=== PATIENT | male | born 1990 | race Hispanic/Latino ===

== ENCOUNTER 2022-12-01 16:01 | Inpatient (IN) | payer OTHER, SELFPAY ==
--- OUTSIDE RECORDS SUMMARY | 2022-12-01 16:05 | XMS REPORT | Continuity of Care Document ---
:1990 Author Organization [facility] t Address [address] [place] [address] [address] [place] [address] Care Team Providers Name Role Phone Pcp, Patient Does Not Have A Primary Care Physician [id number] JACQUIE ENGEL Attending Clinician Unavailable Jacquie Engel MD Attending Clinician Doctor Unassigned, [place] Attending Clinician Unavailable Abel Retana DO Attending Clinician Linwood Lopez MD Attending Clinician Linwood Lopez MD Admitting Clinician Payers Payer Name Policy Type Policy Number Effective Date Expiration Date S [facility] [id number] 2020 00:00:00 Problems Condition Condition Condition Status Onset Resolution Last Treating Co mments Source Name Details Category Date Date Treatment Clinician Date Acute Acute Disease Active Univers appendicit appendicit 4-25 it y of is is 00:00: [place] [address] Medical Mobile Obesity Obesity Disease Active Univers (BMI (BMI 4-25 ity of 30-39.9) 30-39.9) 00:00: [place] [address] Medical Branch Acute Acute Disease Active Univers colitis colitis 4-25 ity of 00:00: [place] [address] Medical Mobile Allergies, Adverse Reactions, Alerts Allergy Allergy Status Severity Reaction(s) Onset Inactive Treating Comm ents Source Name Type Date Date Clinician NO KNOWN Drug Active Univers ALLERGIE Class ity of S [facility] Social History Social Habit Start Date Stop Date Quantity Comments Source History of Smokes tobacco University of tobacco use daily [facility] Exposure to 2022-04-10 2022-04-20 Not sure [facility] SARS-CoV-2 00:00:00 02:31:00 [facility] (event) Mobile Sex Assigned At [birth year] Universit y of 00:00:00 00:00:00 [facility] Smoking Status Start Date Stop Date Source Smokes tobacco daily 2020-10-17 00:00:00 [facility] ity of [facility] Medications Ordered Filled Start Stop Current Ordering Indication Dosage Frequency Signature Comments Components Source Medication Medication Date Date Medication? Clinician (SIG) Name Name amoxicillin 2021-06 500mg 500 mg, U nivers (TRIMOX) 0-27 04-20 Oral, ity of capsule 500 08:00: 08:18 [place]CE[place] 1 [place] 00 :00 dose, On Medical [facility] Branch 04/20/22 at 0300, NORMA
Re ason for Anti-Infec tive: Documented Infection< br>Documen lucille Infection Site: HEENT
D uration of Therapy: 10 days HYDROcodone 2021-06 No 1{tbl} 1 tablet, Univers -acetaminop 0-27 04-20 Oral, ity of hen (NORCO 08:00: 08:17 ONCE, 1 [place] as 5) 5-325 mg 00 :00 dose, On [facility] judah tablet [facility] Branch tablet 04/20/22 at 0300, NORMA amoxicillin 2021-06 Yes [id number] 500mg Take 1 Univers 500 mg 0-27 capsule by ity of capsule 00:00: mouth in [place] 00 the Medical morning Branch and 1 capsule at noon and 1 capsule in the evening. naproxen 2021-06 No [id number] 500mg Take 1 U nivers 500 mg 0-27 - tablet by ity of tablet 00:00: 05:59 mouth in [place] 00 :00 the Medical morning Branch and 1 tablet in the evening. Take with meals. Do all this for 10 days. HYDROcodone 2021-06- No [id number] 1{tbl} Take 1 U nivers -acetaminop 0-27 11-04 tablet by it y of hen (NORCO) 00:00: 04:59 [place] 7.5-325 mg 00 :00 every 8 Medica l per tablet (eight) Branch hours as needed for Pain for up to 7 days. Indication s: acute pain piperacilli 2021-0 Yes 3.375g 3.375 g, Univers n-tazobacta 4-25 IV ity of m (ZOSYN) 12:15: [place] 3.375 g in 00 Q6H ABX, Medic al NaCl 0.9% First dose Bran ch (NS) 100 mL on Sun MINI-BAG 10/17/20 at 0715, Until Discontinu ed, 100 mL
R juan manuel for Anti-Infec tive: Documented Infection< br>Documen lucille Infection Site: Abdominal< br>Duratio n of Therapy: 7 days piperacilli 2020-0 Yes 3.375g 3.375 g, Univers n-tazobacta 4-25 IV ity of m (ZOSYN) 12:15: [place] 3.375 g in 00 Q6H ABX, Medic al NaCl 0.9% First dose Bran ch (NS) 100 mL on Sun MINI-BAG 10/17/20 at 0715, Until Discontinu ed, 100 mL
R juan manuel for Anti-Infec tive: Documented Infection< br>Documen lucille Infection Site: Abdominal< br>Duratio n of Therapy: 7 days acetaminoph 2020-0 Yes 650mg 650 mg, Un moni en 4-25 Oral, ity of (TYLENOL) 07:51: Q6HPRN, [place] tablet 650 22 Starting Medic al mg Sun Branch 10/17/20 at 0251, Until Discontinu ed, Routine, Pain (scale 1-3), Temp > 38.5 C acetaminoph 2021-0 Yes 650mg 650 mg, Un moni en 4-25 Oral, ity of (TYLENOL) 07:51: Q6HPRN, [place] tablet 650 22 Starting Medic al mg Sun Branch 10/17/20 at 0251, Until Discontinu ed, Routine, Pain (scale 1-3), Temp > 38.5 C piperacilli 2021-0 2021- No 3.375g 3.375 g, Univers n-tazobacta 10-17- IV ity of m (ZOSYN) 07:00: 06:45 [place], [place] 3.375 g in 00 :00 ONCE, 1 Medica l NaCl 0.9% dose, [place] Branc h (NS) 100 mL 10/17/20 at MINI-BAG 0200, 100 mL
Reas on for Anti-Infec tive: Empiric Therapy for Suspected Infection< br>Empiric Therapy Site: Abdominal< br>Duratio n of therapy: 72 hours piperacilli 0 2020- No 3.375g 3.375 g, Univers n-tazobacta 10-17- IV ity of m (ZOSYN) 07:00: 06:45 [place], [place] 3.375 g in 00 :00 ONCE, 1 Medica l NaCl 0.9% dose, [place] Branc h (NS) 100 mL 10/17/20 at MINI-BAG 0200, 100 mL
Reas on for Anti-Infec tive: Empiric Therapy for Suspected Infection< br>Empiric Therapy Site: Abdominal< br>Duratio n of therapy: 72 hours NaCl 0.9% 2020-0 Yes 1000mL at 125 Univ ers (NS) IV 4-25 mL/hr, IV ity of infusion 06:15: [place]fusion, [place] 1,000 mL 00 CONTINUOUS Medic al , Starting Branch [place] 10/17/20 at 0115, Until Discontinu ed, Routine NaCl 0.9% 2020-0 Yes 1000mL at 125 Univ ers (NS) IV 4-25 mL/hr, IV ity of infusion 06:15: Infusion, [place] 1,000 mL 00 CONTINUOUS Medic al , Starting Branch [place] 10/17/20 at 0115, Until Discontinu ed, Routine ondansetron 2020-0 Yes 4mg 4 mg, Slow Univers (ZOFRAN 4-25 IV Push, ity of (PF)) 06:06: Q6HPRN, [place] injection 4 54 Starting Medi judah mg [facility] 10/17/20 at 0106, Until Discontinu ed, Routine, Nausea and Vomiting (N/V) ondansetron 2020-0 Yes 4mg 4 mg, Slow Univers (ZOFRAN 4-25 IV Push, ity of (PF)) 06:06: Q6HPRN, [place] injection 4 54 Starting Medi judah mg [facility] 10/17/20 at 0106, Until Discontinu ed, Routine, Nausea and Vomiting (N/V) morpHINE No 4mg 4 mg, Slow Un moni injection 4 10-17 IV Push, ity of mg 06:06: 06:05 Q4HPRN, [place] 50 :50 Starting [facility] 10/17/20 at 0106, Until 10/18/20 at 0105, Routine, Pain (scale 7-10) morpHINE No 4mg 4 mg, Slow Un moni injection 4 10-17 IV Push, ity of mg 06:06: 06:05 Q4RN, [place] 50 :50 Starting [facility] 10/17/20 at 0106, Until 10/18/20 at 0105, Routine, Pain (scale 7-10) iohexol 2020- No [id number] 120mL 120 mL, Univers (OMNIPAQUE 4-25 04-25 Intravenou it y of 350 04:00: 03:44 s, ONCE, 1 [place] BULK-100 00 :00 dose, Sat Medica l mL) 10/16/20 at Branch injection 2300, 120 mL Routine iohexol 2020- No [id number] 120mL 120 mL, Univers (OMNIPAQUE 4-25 04-25 Intravenou it y of 350 04:00: 03:44 s, ONCE, 1 [place] BULK-100 00 :00 dose, Sat Medica l mL) 10/16/20 at Branch injection 2300, 120 mL Routine No known No No known Unive rs medications 10-17 medication it y of 03:16: s [place] 12 [facility] NaCl 0.9% 2020- No 500mL at 999 Univ ers (NS) bolus 10-17 04-25 mL/hr, 500 it y of infusion 03:00: 04:39 mL, IV [place] 500 mL 00 :00 Infusion, Medical ONCE, 1 Branch dose, 10/16/20 at 2200, STAT NaCl 0.9% 2020- No 500mL at 999 Univ ers (NS) bolus 10-17-25 mL/hr, 500 it y of infusion 03:00: 04:39 mL, IV [place] 500 mL 00 :00 Infusion, Medical ONCE, 1 Branch dose, 10/16/20 at 2200, STAT ciprofloxac 2020- No [id number] 500mg Take 1 Univers in HCl 500 10-17-03 tablet by ity of mg tablet 00:00: 04:59 mouth [place] 00 :00 every 12 Medical (twelve) Branch hours for 7 days. metroNIDAZO 2020- No [id number] 500mg Take 2 Univers LE 250 mg 10-17-03 tablets by ity of tablet 00:00: 04:59 mouth [place] 00 :00 every 8 Medical (eight) Branch hours for 7 days. No known No Univers medications [facility] No known No Univers medications [facility] Vital Signs Vital Name Observation Time Observation Value Comments Source Systolic blood 2022-04-20 07:33:00 160 mm[facility]Hg[facility] [place] [facility] Diastolic blood 2022-04-20 07:33:00 116 mm[facility]Hg] [facility] [place] [facility] rate 2022-04-20 07:33:00 67 /min [facility] Body temperature 2022-04-20 07:33:00 36.94 Amelia [facility] Respiratory rate 2022-04-20 07:33:00 16 /min [facility] Body height 2022-04-20 07:33:00 172.7 cm [facility] Body weight 2022-04-20 07:33:00 96.616 kg [facility] BMI 2022-04-20 07:33:00 32.39 kg/m2 [facility] Oxygen saturation in 2022-04-20 07:33:00 96 /min [facility] Arterial blood by [facility] Pulse oximetry Branch Heart rate 2020-10-17 17:00:00 96 /min [facility] Respiratory rate 2020-10-17 17:00:00 20 /min [facility] Oxygen saturation in 2020-10-17 17:00:00 96 /min [facility] Arterial blood by [facility] Pulse oximetry Branch Systolic blood 2020-10-17 16:17:00 138 mm[Hg] Everardo sity of pressure [facility] Diastolic blood 2020-10-17 16:17:00 81 mm[Hg] Unive rsity of pressure [facility] Heart rate 2020-10-17 16:17:00 89 /min [facility] Body temperature 2020-10-17 16:17:00 37.39 Amelia [facility] [place] [facility] Respiratory rate 2020-10-17 16:17:00 19 /min [facility] Oxygen saturation in 2020-10-17 16:17:00 98 /min [facility] Arterial blood by [facility] Pulse oximetry Branch Body height 2020-10-17 08:00:00 172.7 cm [facility] Body weight 2020-10-17 08:00:00 97.977 kg [facility] BMI 2020-10-17 08:00:00 32.84 kg/m2 [facility] Procedures Procedure Date / Time Performing Clinician Source Performed NOTICE OF PRIVACY 2022-04-20 07:28:29 Doctor Unassigned, No [facility]ACTICES Name [facility] CONSENT/REFUSAL FOR 2022-04-20 07:28:06 [facility] AUTHORIZATION FOR 2020-11-01 05:01:00 Doctor Unassigned, No [facility] RELEASE OF PHI Name Medical Branch PHOSPHORUS 2020-10-17 08:37:00 Linwood Lopez [facility] MAGNESIUM 2020-10-17 08:37:00 Jessica [facility] COMP. METABOLIC PANEL 2020-10-17 08:37:00 Linwood Lopez [facility] ([id number]) [facility] CBC WITH DIFF 2020-10-17 08:37:00 Jessica [facility] PROTHROMBIN TIME / INR 2020-10-17 08:37:00 [facility] ACT[facility] 2020-10-17 08:37:00 Linwood Lopez [facility] THRMPLAS CHANDA Medical Branch COVID-19 (ID NOW RAPID 2020-10-17 05:03:00 Abel Retana [facility] TESTING) Medical Branch URINALYSIS 2020-10-17 04:40:00 Abel Retana [place] [facility] [place] [facility] CT ABDOMEN PELVIS W 2020-10-17 03:48:23 Abel Retana ty of [place] CONTRAST Medical Branch LIPASE 2020-10-17 03:04:00 Abel Retana [facility] COMP. METABOLIC PANEL 2020-10-17 03:04:00 Abel Retana [facility] ([id number]) Medical Branch CBC WITH DIFF 2020-10-17 03:04:00 Singer Abel [facility] NOTICE OF PRIVACY 2020-10-17 02:37:51 Doctor Axel, No [facility] Name Medical Branch Encounters Start End Encounter Admission Attending Care Care Encounter Source Date/Time Date/Time Type Type Clinicians Facility Department ID 2022-04-20 2022-04-20 Emergency X [facility] ERT [id number] Univers 02:38:00 03:25:00 JACQUIE thrasher [facility] 2022-04-20 2022-04-20 Emergency [facility] [id number] Univers 02:38:00 03:25:00 Jacquie RIVAS [id number] i ty [facility] [id number] [place] [facility] [id number] [facility] 084 Branch 2022-04-20 2022-04-20 Orders Doctor ALFARO [id number] Univers 00:00:00 00:00:00 Only UnassignedJACKSON [id number] ity of [place] [facility] [id number] [place] [id number] [facility] 009 Branch 2020-11-01 2020-11-01 Orders Doctor DOMINIC [id number] Univers 00:00:00 00:00:00 Only UnassignedJACKSON [id number] ity of [place] [facility] [id number] [place] as [id number] [facility] 009 Branch 2020-10-16 2020-10-17 Emergency Abel Retana [facility] [id number] Univers 21:40:00 12:16:00 [id number] [id number] [id number] [facility] 080 Branch 2020-10-16 2020-10-16 Emergency X [facility] ERT [id number] Univers 21:40:00 21:40:00 ity of [facility] Results Test Test Test Results Result Source Description Time Comments Comments CT ABDOMEN submucosal Universi ty of PELVIS W 25 edematous cecal wall [place] Medical CONTRAST 14:21:39 thickening with Branch pericecal andperiappendiceal mesenteric stranding. In the absence of appendicealdilation, the findings is suggestive of colitis, however early appendicitisis not excluded. Distant urinary bladder. Subcentimeter segment 4 hepatic hypodensity suggestive of a benign lesionincluding simple cyst, ?biliary hamartoma or hemangioma. Preliminary Report Dictated by Resident: Nisha Quinonez I, Behzad Barry MD., have reviewed this study and agree with theabove report.EXAM: CT ABDOMEN AND PELVIS WITH CONTRAST HISTORY: 30-year-old male with abdominal pain and fever for 3 days. COMPARISON: None. DOSE: 374 mGy cm total exam DLP TECHNIQUE AND FINDINGS: Contiguous axial imaging from the level of the lungbases through the pubic symphysis was performed after the administration of100 cc of intravenous nonionic iodinated Omnipaque 350 contrast. Abdomenwas scanned in venous phase. Corresponding coronal and sagittal MPRreconstructions were obtained. ?Auto mA and/or iterative reconstructionwere used to reduce radiation dose. FINDINGS: LOWER THORAX: The lungs bases are clear. No pleural or pericardialeffusions are visualized. LIVER: Normal contour. A segment 4B hypodensity measures 8 mm. The portalveins are patent. GALLBLADDER AND BILIARY TREE: The gallbladder is decompressed. There is nointra or extrahepatic biliary ductal dilation. SPLEEN: No splenomegaly. PANCREAS: No pancreatic ductal dilation. ADRENAL GLANDS: No adrenal nodules. KIDNEYS: The kidneys enhance normally. No nephrolithiasis orhydronephrosis. PERITONEUM AND RETROPERITONEUM: No free air or free fluid. LYMPH NODES: Lymph nodes in the retroperitoneal, mesenteric, and iliacareas are not enlarged by CT size criteria. GI TRACT: The appendix is well-visualized from its attachment to theblind-ending tip and measures up to 7 mm in diameter (2:104, 4:53). Thereis submucosal cecal edema and mild right lower quadrant pericolonic andperiappendiceal inflammatory stranding. PELVIS/BLADDER: The urinary bladder is distended. VESSELS: Unremarkable. BONES AND SOFT TISSUES: No suspicious lytic or sclerotic bony lesions. [facility], Radiant Results Inft User - 10/17/2020 9:22 AM CDTEXAM: CT ABDOMEN AND PELVIS WITH CONTRASTHISTORY: 30-year-old male with abdominal pain and fever for 3 days.COMPARISON: None.DOSE: 374 mGy cm total exam DLPTECHNIQUE AND FINDINGS: Contiguous axial imaging from the level of the lungbases through the pubic symphysis was performed after the administration of100 cc of intravenous nonionic iodinated Omnipaque 350 contrast. Abdomenwas scanned in venous phase. Corresponding coronal and sagittal MPRreconstructions were obtained. Auto mA and/or iterative reconstructionwere used to reduce radiation dose.FINDINGS:LOWER THORAX: The lungs bases are clear. No pleural or pericardialeffusions are visualized. LIVER: Normal contour. A segment 4B hypodensity measures 8 mm. The portalveins are patent.GALLBLADDER AND BILIARY TREE: The gallbladder is decompressed. There is nointra or extrahepatic biliary ductal dilation.SPLEEN: No splenomegaly.PANCREAS: No pancreatic ductal dilation.ADRENAL GLANDS: No adrenal nodules.KIDNEYS: The kidneys enhance normally. No nephrolithiasis orhydronephrosis.PERITON EUM AND RETROPERITONEUM: No free air or free fluid.LYMPH NODES: Lymph nodes in the retroperitoneal, mesenteric, and iliacareas are not enlarged by CT size criteria. GI TRACT: The appendix is well-visualized from its attachment to theblind-ending tip and measures up to 7 mm in diameter (2:104, 4:53). Thereis submucosal cecal edema and mild right lower quadrant pericolonic andperiappendiceal inflammatory stranding.PELVIS/BLADDER : The urinary bladder is distended.VESSELS: Unremarkable.BONES AND SOFT TISSUES: No suspicious lytic or sclerotic bony lesions.IMPRESSIONMild submucosal edematous cecal wall thickening with pericecal andperiappendiceal mesenteric stranding. In the absence of appendicealdilation, the findings is suggestive of colitis, however early appendicitisis not excluded. Distant urinary bladder.Subcentimeter segment 4 hepatic hypodensity suggestive of a benign lesionincluding simple cyst, biliary hamartoma or hemangioma.Preliminary Report Dictated by Resident: Behzad Ferrell MD., have reviewed this study and agree with theabove report. CT ABDOMEN 2020-09- Mild submucosal Universi ty of PELVIS W 25 edematous cecal wall [place] CONTR[place] 14:21:39 thickening with Branch pericecal andperiappendiceal mesenteric stranding. In the absence of appendicealdilation, the findings is suggestive of colitis, however early appendicitisis not excluded. Distant urinary bladder. Subcentimeter segment 4 hepatic hypodensity suggestive of a benign lesionincluding simple cyst, ?biliary hamartoma or hemangioma. Preliminary Report Dictated by Resident: Behzad Lewis ?MD Анна., have reviewed this study and agree with theabove report.EXAM: CT ABDOMEN AND PELVIS WITH CONTRAST HISTORY: 30-year-old male with abdominal pain and fever for 3 days. COMPARISON: None. DOSE: 374 mGy cm total exam DLP TECHNIQUE AND FINDINGS: Contiguous axial imaging from the level of the lungbases through the pubic symphysis was performed after the administration of100 cc of intravenous nonionic iodinated Omnipaque 350 contrast. Abdomenwas scanned in venous phase. Corresponding coronal and sagittal MPRreconstructions were obtained. ?Auto mA and/or iterative reconstructionwere used to reduce radiation dose. FINDINGS: LOWER THORAX: The lungs bases are clear. No pleural or pericardialeffusions are visualized. LIVER: Normal contour. A segment 4B hypodensity measures 8 mm. The portalveins are patent. GALLBLADDER AND BILIARY TREE: The gallbladder is decompressed. There is nointra or extrahepatic biliary ductal dilation. SPLEEN: No splenomegaly. PANCREAS: No pancreatic ductal dilation. ADRENAL GLANDS: No adrenal nodules. KIDNEYS: The kidneys enhance normally. No nephrolithiasis orhydronephrosis. PERITONEUM AND RETROPERITONEUM: No free air or free fluid. LYMPH NODES: Lymph nodes in the retroperitoneal, mesenteric, and iliacareas are not enlarged by CT size criteria. GI TRACT: The appendix is well-visualized from its attachment to theblind-ending tip and measures up to 7 mm in diameter (2:104, 4:53). Thereis submucosal cecal edema and mild right lower quadrant pericolonic andperiappendiceal inflammatory stranding. PELVIS/BLADDER: The urinary bladder is distended. VESSELS: Unremarkable. BONES AND SOFT TISSUES: No suspicious lytic or sclerotic bony lesions. [facility], Radiant Results Inft User - 10/17/2020 9:22 AM CDTEXAM: CT ABDOMEN AND PELVIS WITH CONTRASTHISTORY: 30-year-old male with abdominal pain and fever for 3 days.COMPARISON: None.DOSE: 374 mGy cm total exam DLPTECHNIQUE AND FINDINGS: Contiguous axial imaging from the level of the lungbases through the pubic symphysis was performed after the administration of100 cc of intravenous nonionic iodinated Omnipaque 350 contrast. Abdomenwas scanned in venous phase. Corresponding coronal and sagittal MPRreconstructions were obtained. Auto mA and/or iterative reconstructionwere used to reduce radiation dose.FINDINGS:LOWER THORAX: The lungs bases are clear. No pleural or pericardialeffusions are visualized. LIVER: Normal contour. A segment 4B hypodensity measures 8 mm. The portalveins are patent.GALLBLADDER AND BILIARY TREE: The gallbladder is decompressed. There is nointra or extrahepatic biliary ductal dilation.SPLEEN: No splenomegaly.PANCREAS: No pancreatic ductal dilation.ADRENAL GLANDS: No adrenal nodules.KIDNEYS: The kidneys enhance normally. No nephrolithiasis orhydronephrosis.PERITON EUM AND RETROPERITONEUM: No free air or free fluid.LYMPH NODES: Lymph nodes in the retroperitoneal, mesenteric, and iliacareas are not enlarged by CT size criteria. GI TRACT: The appendix is well-visualized from its attachment to theblind-ending tip and measures up to 7 mm in diameter (2:104, 4:53). Thereis submucosal cecal edema and mild right lower quadrant pericolonic andperiappendiceal inflammatory stranding.PELVIS/BLADDER : The urinary bladder is distended.VESSELS: Unremarkable.BONES AND SOFT TISSUES: No suspicious lytic or sclerotic bony lesions.IMPRESSIONMild submucosal edematous cecal wall thickening with pericecal andperiappendiceal mesenteric stranding. In the absence of appendicealdilation, the findings is suggestive of colitis, however early appendicitisis not excluded. Distant urinary bladder.Subcentimeter segment 4 hepatic hypodensity suggestive of a benign lesionincluding simple cyst, biliary hamartoma or hemangioma.Preliminary Report Dictated by Resident: Nisha Muñiz, Behzad Jj MD., have reviewed this study and agree with theabove report. MAGNESIUM 2020-10-17 11:10:45 Test Item Value Reference Range Interpretation Comme nts MAGNESIUM (test code = 1191959165) 1.6 mg/dL 1.7-2.4 L Lab Interpretation (test code = 27845-2) [facility] 11:10:45 Test Item Value Reference Range Interpretation Comments MAGNESIUM (test code = 3606886221) 1.6 mg/dL 1.7-2.4 L Lab Interpretation (test code = Abnormal 65657-6) [facility] (42642)2020-10-17 11:10:25 Test Item Value Reference Range Interpretation Comments NA (test code = 139 mmol/L 135-145 [id number]) K (test code = 3.7 mmol/L 3.5-5.0 8262367790) CL (test code = 103 mmol/L 98-108 1571834509) CO2 TOTAL (test code = 26 mmol/L 23-31 6569449096) AGAP (test code = 2-16 0517685733) BUN (test code = 11 mg/dL 7-23 8285840883) GLUCOSE (test code = 97 mg/dL 70-110 7010998586) CREATININE (test code = 0.87 mg/dL 0.60-1.25 0414362340) TOTAL BILI (test code = 1.4 mg/dL 0.1-1.1 H 6322116359) CALCIUM (test code = 9.5 mg/dL 8.6-10.6 3248441759) T PROTEIN (test code = 7.0 g/dL 6.3-8.2 7667264620) ALBUMIN (test code = 4.3 g/dL 3.5-5.0 1042210730) ALK PHOS (test code = 68 U/L 34-122 1483536494) ALTv (test code = 41 U/L 5-50 1742-6) AST(SGOT) (test code = 30 U/L 1340 6025127244) eGFR (test code = mL/min/1.73m2 7169739091) RYLEY (test code = RYLEY) Association of Glomerular Filtration Rate (GFR) and Staging of Kidney Disease* + --+ --+ ------+| GFR (mL/min/1.73 m2) ?| With Kidney Damage ?| ?Without Kidney Damage+ --------+ --------+ +| ?>90 ?| ?Stage one ?| ? Normal ?+ ---+ ---+ -------+| ?60-89 ?| ?Stage two ?| ? Decreased GFR ? + --+ --+ ------+| ?30-59 ?| ?Stage three ?| ? Stage three ? + --+ --+ ------+| ?15-29 ?| ?Stage four ? | ? Stage four ?+ ---+ ---+ -------+| ?<15 (or dialysis) ? ?| ?Stage five ? | ? Stage five ?+ ---+ ---+ -------+ *Each stage assumes the associated GFR level has been in effect for at least three months. ?Stages 1 to 5, with or without kidney disease, indicate chronic kidney disease. Notes: Determination of stages one and two (with eGFR >59mL/min/1.73 m2) requires estimation of kidney damage for at least three months as defined by structural or functional abnormalities of the kidney, manifested by either:Pathological abnormalities or Markers of kidney damage (including abnormalities in the composition of the blood or urine or abnormalities in imaging tests). Lab Interpretation Abnormal (test code = 87761-6) [facility]10:25 Test Item Value Reference Range Interpretation Comments PHOSPHORUS (test code = 7833017332) 4.8 mg/dL 2.5-5.0 Lab Interpretation (test code = Normal 69157-9) [facility] ([id number])2020-10-17 11:10:25 Test Item Value Reference Range Interpretation Comments NA (test code = 139 mmol/L 135-145 5613254735) K (test code = 3.7 mmol/L 3.5-5.0 4111379767) CL (test code = 103 mmol/L 98-108 6951769027) CO2 TOTAL (test code = 26 mmol/L 23-31 1468951978) AGAP (test code = 2-16 3341040053) BUN (test code = 11 mg/dL 7-23 0354995824) GLUCOSE (test code = 97 mg/dL 70-110 0386101980) CREATININE (test code = 0.87 mg/dL 0.60-1.25 6335030457) TOTAL BILI (test code = 1.4 mg/dL 0.1-1.1 H 9713498879) CALCIUM (test code = 9.5 mg/dL 8.6-10.6 9266324123) T PROTEIN (test code = 7.0 g/dL 6.3-8.2 9773439467) ALBUMIN (test code = 4.3 g/dL 3.5-5.0 6019281686) ALK PHOS (test code = 68 U/L 34-122 9860106498) ALTv (test code = 41 U/L 5-50 2-6) AST(SGOT) (test code = 30 U/L 13-40 8854516895) eGFR (test code = mL/min/1.73m2 6312268702) RYLEY (test code = RYLEY) Association of Glomerular Filtration Rate (GFR) and Staging of Kidney Disease* + --+ --+ ------+| GFR (mL/min/1.73 m2) ?| With Kidney Damage ?| ?Without Kidney Damage+ --------+ --------+ +| ?>90 ?| ?Stage one ?| ? Normal ?+ ---+ ---+ -------+| ?60-89 ?| ?Stage two ?| ? Decreased GFR ? + --+ --+ ------+| ?30-59 ?| ?Stage three ?| ? Stage three ? + --+ --+ ------+| ?15-29 ?| ?Stage four ? | ? Stage four ?+ ---+ ---+ -------+| ?<15 (or dialysis) ? ?| ?Stage five ? | ? Stage five ?+ ---+ ---+ -------+ *Each stage assumes the associated GFR level has been in effect for at least three months. ?Stages 1 to 5, with or without kidney disease, indicate chronic kidney disease. Notes: Determination of stages one and two (with eGFR >59mL/min/1.73 m2) requires estimation of kidney damage for at least three months as defined by structural or functional abnormalities of the kidney, manifested by either:Pathological abnormalities or Markers of kidney damage (including abnormalities in the composition of the blood or urine or abnormalities in imaging tests). Lab Interpretation Abnormal (test code = 49744-2) [facility]10:25 Test Item Value Reference Range Interpretation Comments PHOSPHORUS (test code = 7410703228) 4.8 mg/dL 2.5-5.0 Lab Interpretation (test code = Normal 22485-0) [facility] [id number] 10:44:07 Test Item Value Reference Range Interpretation Comments APTT Patient (test See_Comment [Automat ed code = 3173-2) message] The system which generated this result transmitted reference range : 23 - 38 Seconds . The reference range was not used to interpr et this result as normal/abnormal . RYLEY (test code = RYLEY) The [facility] patient population mean normal value for aPTT is 30 seconds. Lab Interpretation Normal (test code = 19542-1) [facility] [id number] 10:44:07 Test Item Value Reference Range Interpretation Comments APTT Patient (test See_Comment [Automat ed code = 3173-2) message] The system which generated this result transmitted reference range : 23 - 38 Seconds . The reference range was not used to interpr et this result as normal/abnormal . RYLEY (test code = RYLEY) The [facility] patient population mean normal value for aPTT is 30 seconds. Lab Interpretation Normal (test code = 28829-0) [facility] / [id number] 10:42:04 Test Item Value Reference Range Interpretation Comments PROTIME PATIENT (test See_Comment [Auto mated message] code = 5964-2) The system wh ich generated this result transmitted ref erence range: 12.0 - 1 4.7 Seconds. The re ference range was not u sed to interpret this result as normal/abnor mal. INR (test code = 6301-6) Nor mal INR <1.1; Warfarin Therap eutic range 2.0 to 3. 0 or 2.5 to 3.5, dep ending upon the indica tions. Lab Interpretation (test Normal code = 12760-1) [facility] / [id number] 10:42:04 Test Item Value Reference Range Interpretation Comments PROTIME PATIENT (test See_Comment [Auto mated message] code = 5964-2) The system wh ich generated this result transmitted ref erence range: 12.0 - 1 4.7 Seconds. The re ference range was not u sed to interpret this result as normal/abnor mal. INR (test code = 6301-6) Nor mal INR <1.1; Warfarin Therap eutic range 2.0 to 3. 0 or 2.5 to 3.5, dep ending upon the indica tions. Lab Interpretation (test Normal code = 05690-7) [facility] WITH [id number] 10:25:24 Test Item Value Reference Range Interpretation Comments WBC (test code = See_Comment H [Automated 6690-2) message] The sy stem which generated this result transmitted reference range : 4.20 - 10.70 10*3/?L. The reference range was not used to interpret this result as normal/abnormal . RBC (test code = See_Comment [Automated 239-8) message] The sy stem which generated this result transmitted reference range : 4.26 - 5.52 10*6/?L. The reference range was not used to interpret this result as normal/abnormal . HGB (test code = 14.6 g/dL 12.2-16.4 718-7) HCT (test code = 43.6 % 38.4-49.3 4544-3) MCV (test code = 89.5 fL 81.7-95.6 787-2) MCH (test code = 30.0 pg 26.1-32.7 785-6) MCHC (test code = 33.5 g/dL 31.2-35.0 786-4) RDW-SD (test code = 40.0 fL 38.5-51.6 06706-8) RDW-CV (test code = 12.2 % 12.1-15.4 788-0) PLT (test code = See_Comment [Automated 777-3) message] The sy stem which generated this result transmitted reference range : 150 - 328 10*3/ ?L. The reference r sandoval was not used to interpret this result as normal/abnormal . MPV (test code = 10.0 fL 9.8-13.0 88645-0) NRBC/100 WBC (test See_Comment [Automat ed code = 9072401301) message] The system which generated this result transmitted reference range : 0.0 - 10.0 /100 WBCs. The refer ence range was not u sed to interpret th is result as normal/abnormal . NRBC x10^3 (test code <0.01 See_Comment [Auto mated = 3182971787) message] The s ystem which generated this result transmitted reference range : 10*3/?L. The reference range was not used to interpret this result as normal/abnormal . GRAN MAT (NEUT) % 76.1 % (test code = 770-8) IMM GRAN % (test code 0.60 % = 8397522684) LYMPH % (test code = 13.9 % 736-9) MONO % (test code = 6.5 % 5905-5) EOS % (test code = 2.3 % 713-8) BASO % (test code = 0.6 % 706-2) GRAN MAT x10^3(ANC) 8.26 10*3/uL 1.99-6.95 H (test code = 6345964377) IMM GRAN x10^3 (test 0.06 10*3/uL 0.00-0.06 code = 5834471387) LYMPH x10^3 (test code 1.50 10*3/uL 1.09-3.23 = 731-0) MONO x10^3 (test code 0.70 10*3/uL 0.36-1.02 = 742-7) EOS x10^3 (test code = 0.25 10*3/uL 0.06-0.53 711-2) BASO x10^3 (test code 0.06 10*3/uL 0.01-0.09 = 704-7) Lab Interpretation Abnormal (test code = 61764-0) [facility] WITH [id number] 10:25:24 Test Item Value Reference Range Interpretation Comments WBC (test code = See_Comment H [Automated 6690-2) message] The sy stem which generated this result transmitted reference range : 4.20 - 10.70 10*3/?L. The reference range was not used to interpret this result as normal/abnormal . RBC (test code = See_Comment [Automated 789-8) message] The sy stem which generated this result transmitted reference range : 4.26 - 5.52 10*6/?L. The reference range was not used to interpret this result as normal/abnormal . HGB (test code = 14.6 g/dL 12.2-16.4 718-7) HCT (test code = 43.6 % 38.4-49.3 4544-3) MCV (test code = 89.5 fL 81.7-95.6 787-2) MCH (test code = 30.0 pg 26.1-32.7 785-6) MCHC (test code = 33.5 g/dL 31.2-35.0 786-4) RDW-SD (test code = 40.0 fL 38.5-51.6 29679-3) RDW-CV (test code = 12.2 % 12.1-15.4 788-0) PLT (test code = See_Comment [Automated 777-3) message] The sy stem which generated this result transmitted reference range : 150 - 328 10*3/ ?L. The reference r sandoval was not used to interpret this result as normal/abnormal . MPV (test code = 10.0 fL 9.8-13.0 88437-7) NRBC/100 WBC (test See_Comment [Automat ed code = 5693928607) message] The system which generated this result transmitted reference range : 0.0 - 10.0 /100 WBCs. The refer ence range was not u sed to interpret th is result as normal/abnormal . NRBC x10^3 (test code <0.01 See_Comment [Auto mated = 3314647090) message] The s ystem which generated this result transmitted reference range : 10*3/?L. The reference range was not used to interpret this result as normal/abnormal . GRAN MAT (NEUT) % 76.1 % (test code = 770-8) IMM GRAN % (test code 0.60 % = 6626441606) LYMPH % (test code = 13.9 % 736-9) MONO % (test code = 6.5 % 5905-5) EOS % (test code = 2.3 % 713-8) BASO % (test code = 0.6 % 706-2) GRAN MAT x10^3(ANC) 8.26 10*3/uL 1.99-6.95 H (test code = 8199181759) IMM GRAN x10^3 (test 0.06 10*3/uL 0.00-0.06 code = 5619582103) LYMPH x10^3 (test code 1.50 10*3/uL 1.09-3.23 = 731-0) MONO x10^3 (test code 0.70 10*3/uL 0.36-1.02 = 742-7) EOS x10^3 (test code = 0.25 10*3/uL 0.06-0.53 711-2) BASO x10^3 (test code 0.06 10*3/uL 0.01-0.09 = 704-7) Lab Interpretation Abnormal (test code = 60539-4) [facility] NOW RAPID TESTING)2020-10-17 07:08:02 Test Item Value Reference Range Interpretation Comments SARS-CoV-2 Rapid ID NOW Not Detected Not Detected (test code = 55230-4) RYLEY (test code = RYLEY) ID NOW COVID-19 Assay is an isothermal nucleic acid amplification test intended for the qualitative detection of nucleic acid from SARS-CoV-2 viral RNA in nasopharyngeal (SLEEVE SETTER SAFETY STITCH) specimens. It is used under Emergency Use Authorization (EUA) by FDA. The limit of detection (LOD) of the assay is 125 Genome Equivalents/mL. A positive result is indicative of the presence of SARS-CoV-2 RNA. ?Clinical correlation with patient history and other diagnostic information is necessary to determine patient infection status. A negative (Not Detected) result does not preclude SARS-CoV-2 infection. In patients with clinical symptoms and other tests that are consistent with SARS-CoV-2 infection, negative results should be treated as presumptive negative and a new specimen should be tested with alternative PCR molecular test. Invalid: Please collect a new specimen for repeat patient testing if clinically indicated. Lab Interpretation Normal (test code = 72567-1) [facility] NOW RAPID TESTING)2020-10-17 07:08:02 Test Item Value Reference Range Interpretation Comments SARS-CoV-2 Rapid ID NOW Not Detected Not Detected (test code = 08761-2) RYLEY (test code = RYLEY) ID NOW COVID-19 Assay is an isothermal nucleic acid amplification test intended for the qualitative detection of nucleic acid from SARS-CoV-2 viral RNA in nasopharyngeal (SLEEVE SETTER SAFETY STITCH) specimens. It is used under Emergency Use Authorization (EUA) by FDA. The limit of detection (LOD) of the assay is 125 Genome Equivalents/mL. A positive result is indicative of the presence of SARS-CoV-2 RNA. ?Clinical correlation with patient history and other diagnostic information is necessary to determine patient infection status. A negative (Not Detected) result does not preclude SARS-CoV-2 infection. In patients with clinical symptoms and other tests that are consistent with SARS-CoV-2 infection, negative results should be treated as presumptive negative and a new specimen should be tested with alternative PCR molecular test. Invalid: Please collect a new specimen for repeat patient testing if clinically indicated. Lab Interpretation Normal (test code = 21401-3) [facility] 05:57:58 Test Item Value Reference Range Interpretation Comments APPEARANCE (test code = Clear Clear 8171240360) COLOR (test code = Straw Yellow A 0715587854) PH (test code = 4.8-8.0 6354385527) SP GRAVITY (test code = 1.003-1.030 0650567369) GLU U QUAL (test code = Normal Normal 6176530966) BLOOD (test code = Negative Negative 9179478636) KETONES (test code = Negative Negative 2790714648) PROTEIN (test code = Negative Negative 2887-8) UROBILIN (test code = Normal Normal 8758987208) BILIRUBIN (test code = Negative Negative 2614436246) NITRITE (test code = Negative Negative 1900889461) LEUK RAYA (test code = Negative Negative 1599777397) RBC/HPF (test code = See_Comment [Autom ated message] 8330786410) The system [email or web address] generated this result transmitted ref erence range: 0 - 3 HP F. The reference range was not used to int erpret this result as normal/abnormal . WBC/HPF (test code = <1 See_Comment [Autom ated message] 2420399745) The system [email or web address] generated this result transmitted ref erence range: 0 - 5 HP F. The reference range was not used to int erpret this result as normal/abnormal . BACTERIA (test code = Few Negative A 8775339142) Lab Interpretation (test Abnormal code = 81493-9) [facility] 05:57:58 Test Item Value Reference Range Interpretation Comments APPEARANCE (test code = Clear Clear 6548021452) COLOR (test code = Straw Yellow A 2890451558) PH (test code = 4.8-8.0 2465730499) SP GRAVITY (test code = 1.003-1.030 2990820222) GLU U QUAL (test code = Normal Normal 4365232696) BLOOD (test code = Negative Negative 6411617472) KETONES (test code = Negative Negative 9258873803) PROTEIN (test code = Negative Negative 2887-8) UROBILIN (test code = Normal Normal 4512818915) BILIRUBIN (test code = Negative Negative 8158939481) NITRITE (test code = Negative Negative 3342527448) LEUK RAYA (test code = Negative Negative 6608549253) RBC/HPF (test code = See_Comment [Autom ated message] 7699861096) The system [email or web address] generated this result transmitted ref erence range: 0 - 3 HP F. The reference range was not used to int erpret this result as normal/abnormal . WBC/HPF (test code = <1 See_Comment [Autom ated message] 8323087386) The system [email or web address] generated this result transmitted ref erence range: 0 - 5 HP F. The reference range was not used to int erpret this result as normal/abnormal . BACTERIA (test code = Few Negative A 2641901321) Lab Interpretation (test Abnormal code = 86645-9) [facility]OLIC PAN[facility] ([id number])2020-10-17 03:30:05 Test Item Value Reference Range Interpretation Comments NA (test code = 138 mmol/L 135-145 5982610948) K (test code = 3.6 mmol/L 3.5-5.0 0017521574) CL (test code = 103 mmol/L 98-108 4806908587) CO2 TOTAL (test code 24 mmol/L 23-31 = 8280572751) AGAP (test code = 2-16 4667112835) BUN (test code = 14 mg/dL 7-23 2829928154) GLUCOSE (test code = 100 mg/dL 70-110 6306900477) CREATININE (test code 0.86 mg/dL 0.60-1.25 = 1425451931) TOTAL BILI (test code 0.7 mg/dL 0.1-1.1 = 8874842247) CALCIUM (test code = 10.0 mg/dL 8.6-10.6 2637588543) T PROTEIN (test code 7.4 g/dL 6.3-8.2 = 0177134438) ALBUMIN (test code = 4.5 g/dL 3.5-5.0 4465217282) ALK PHOS (test code = 86 U/L 34-122 7277114476) ALTv (test code = 44 U/L 5-50 2-6) AST(SGOT) (test code 35 U/L 13-40 = 0707833049) eGFR (test code = mL/min/1.73m2 9225213360) RYLEY (test code = RYLEY) Association of Glomerular Filtration Rate (GFR) and Staging of Kidney Disease* + + +- +| GFR (mL/min/1.73 m2) ?| With Kidney Damage ?| ?Without Kidney Damage+ ------+ ----+ ------+| ?>90 ?| ?Stage one ?| ? Normal ?+ -+ + -+| ?60-89 ?| ?Stage two ?| ? Decreased GFR ? + + +- +| ?30-59 ?| ?Stage three ?| ? Stage three ? + + +- +| ?15-29 ?| ?Stage four ? | ? Stage four ?+ -+ + -+| ?<15 (or dialysis) ? ?| ?Stage five ? | ? Stage five ?+ -+ + -+ *Each stage assumes the associated GFR level has been in effect for at least three months. ?Stages 1 to 5, with or without kidney disease, indicate chronic kidney disease. Notes: Determination of stages one and two (with eGFR >59mL/min/1.73 m2) requires estimation of kidney damage for at least three months as defined by structural or functional abnormalities of the kidney, manifested by either:Pathological abnormalities or Markers of kidney damage (including abnormalities in the composition of the blood or urine or abnormalities in imaging tests). [facility]. METABOLIC PANEL ([id number])2020-10-17 03:30:05 Test Item Value Reference Range Interpretation Comments NA (test code = 138 mmol/L 135-145 1806823144) K (test code = 3.6 mmol/L 3.5-5.0 2131827000) CL (test code = 103 mmol/L 98-108 0463585938) CO2 TOTAL (test code 24 mmol/L 23-31 = 3174300644) AGAP (test code = 2-16 6134116196) BUN (test code = 14 mg/dL 7-23 7400721195) GLUCOSE (test code = 100 mg/dL 70-110 5372121185) CREATININE (test code 0.86 mg/dL 0.60-1.25 = 0765190442) TOTAL BILI (test code 0.7 mg/dL 0.1-1.1 = 4936014430) CALCIUM (test code = 10.0 mg/dL 8.6-10.6 3924427480) T PROTEIN (test code 7.4 g/dL 6.3-8.2 = 2628448898) ALBUMIN (test code = 4.5 g/dL 3.5-5.0 8048449602) ALK PHOS (test code = 86 U/L 34-122 5619342833) ALTv (test code = 44 U/L 5-50 1742-6) AST(SGOT) (test code 35 U/L 13-40 = 9175231159) eGFR (test code = mL/min/1.73m2 4982383649) RYLEY (test code = RYLEY) Association of Glomerular Filtration Rate (GFR) and Staging of Kidney Disease* + + +- +| GFR (mL/min/1.73 m2) ?| With Kidney Damage ?| ?Without Kidney Damage+ ------+ ----+ ------+| ?>90 ?| ?Stage one ?| ? Normal ?+ -+ + -+| ?60-89 ?| ?Stage two ?| ? Decreased GFR ? + + +- +| ?30-59 ?| ?Stage three ?| ? Stage three ? + + +- +| ?15-29 ?| ?Stage four ? | ? Stage four ?+ -+ + -+| ?<15 (or dialysis) ? ?| ?Stage five ? | ? Stage five ?+ -+ + -+ *Each stage assumes the associated GFR level has been in effect for at least three months. ?Stages 1 to 5, with or without kidney disease, indicate chronic kidney disease. Notes: Determination of stages one and two (with eGFR >59mL/min/1.73 m2) requires estimation of kidney damage for at least three months as defined by structural or functional abnormalities of the kidney, manifested by either:Pathological abnormalities or Markers of kidney damage (including abnormalities in the composition of the blood or urine or abnormalities in imaging tests). [facility]29[facility]25 Test Item Value Reference Range Interpretation Comments LIPASE (test code = 8622456841) 54 U/L 0-220 Lab Interpretation (test code = Normal 92292-8) [facility] 03:29:25 Test Item Value Reference Range Interpretation Comments LIPASE (test code = 4935842944) 54 U/L 0-220 Lab Interpretation (test code = Normal 01344-5) [facility] WITH [id number] 03:15:05 Test Item Value Reference Range Interpretation Comments WBC (test code = See_Comment H [Automated 7904-2) message] The system which generated this result transmit lucille reference range : 4.20 - 10.70 10*3/?L. The reference range was not used to interpret this result as normal/abnormal . RBC (test code = See_Comment [Automated 916-8) message] The system which generated this result transmit lucille reference range : 4.26 - 5.52 10*6/?L. The reference range was not used to interpret this result as normal/abnormal . HGB (test code = 14.6 g/dL 12.2-16.4 718-7) HCT (test code = 42.6 % 38.4-49.3 4544-3) MCV (test code = 88.0 fL 81.7-95.6 787-2) MCH (test code = 30.2 pg 26.1-32.7 785-6) MCHC (test code = 34.3 g/dL 31.2-35.0 786-4) RDW-SD (test code = 38.6 fL 38.5-51.6 33165-0) RDW-CV (test code = 12.0 % 12.1-15.4 L 788-0) PLT (test code = See_Comment [Automated 777-3) message] The system which generated this result transmit lucille reference range : 150 - 328 10*3/ ?L. The reference range was not u sed to interpret th is result as normal/abnormal . MPV (test code = 9.3 fL 9.8-13.0 L 61468-2) NRBC/100 WBC (test See_Comment [Automat ed code = 5940736880) message] The system which generated this result transmit lucille reference range : 0.0 - 10.0 /100 WBCs. The reference range was not used to interpret this result as normal/abnormal . NRBC x10^3 (test code <0.01 See_Comment [Auto mated = 5535742908) message] The system which generated this result transmit lucille reference range : 10*3/?L. The reference range was not used to interpret this result as normal/abnormal . GRAN MAT (NEUT) % 87.1 % (test code = 770-8) IMM GRAN % (test code 0.70 % = 0480362653) LYMPH % (test code = 7.3 % 736-9) MONO % (test code = 1.6 % 5905-5) EOS % (test code = 2.6 % 713-8) BASO % (test code = 0.7 % 706-2) GRAN MAT x10^3(ANC) 14.25 10*3/uL 1.99-6.95 H (test code = 5438236847) IMM GRAN x10^3 (test 0.12 10*3/uL 0.00-0.06 H code = 9852979331) LYMPH x10^3 (test code 1.20 10*3/uL 1.09-3.23 = 731-0) MONO x10^3 (test code 0.26 10*3/uL 0.36-1.02 L = 742-7) EOS x10^3 (test code = 0.42 10*3/uL 0.06-0.53 711-2) BASO x10^3 (test code 0.11 10*3/uL 0.01-0.09 H = 704-7) Lab Interpretation Abnormal (test code = 36178-2) [facility] WITH [id number] 03:15:05 Test Item Value Reference Range Interpretation Comments WBC (test code = See_Comment H [Automated 9490-2) message] The system which generated this result transmit lucille reference range : 4.20 - 10.70 10*3/?L. The reference range was not used to interpret this result as normal/abnormal . RBC (test code = See_Comment [Automated 659-8) message] The system which generated this result transmit lucille reference range : 4.26 - 5.52 10*6/?L. The reference range was not used to interpret this result as normal/abnormal . HGB (test code = 14.6 g/dL 12.2-16.4 718-7) HCT (test code = 42.6 % 38.4-49.3 4544-3) MCV (test code = 88.0 fL 81.7-95.6 787-2) MCH (test code = 30.2 pg 26.1-32.7 785-6) MCHC (test code = 34.3 g/dL 31.2-35.0 786-4) RDW-SD (test code = 38.6 fL 38.5-51.6 00572-6) RDW-CV (test code = 12.0 % 12.1-15.4 L 788-0) PLT (test code = See_Comment [Automated 777-3) message] The system which generated this result transmit lucille reference range : 150 - 328 10*3/ ?L. The reference range was not u sed to interpret th is result as normal/abnormal . MPV (test code = 9.3 fL 9.8-13.0 L 84331-7) NRBC/100 WBC (test See_Comment [Automat ed code = 8078015621) message] The system which generated this result transmit lucille reference range : 0.0 - 10.0 /100 WBCs. The reference range was not used to interpret this result as normal/abnormal . NRBC x10^3 (test code <0.01 See_Comment [Auto mated = 5505540472) message] The system which generated this result transmit lucille reference range : 10*3/?L. The reference range was not used to interpret this result as normal/abnormal . GRAN MAT (NEUT) % 87.1 % (test code = 770-8) IMM GRAN % (test code 0.70 % = 6101794514) LYMPH % (test code = 7.3 % 736-9) MONO % (test code = 1.6 % 5905-5) EOS % (test code = 2.6 % 713-8) BASO % (test code = 0.7 % 706-2) GRAN MAT x10^3(ANC) 14.25 10*3/uL 1.99-6.95 H (test code = 8626462576) IMM GRAN x10^3 (test 0.12 10*3/uL 0.00-0.06 H code = 8383021691) LYMPH x10^3 (test code 1.20 10*3/uL 1.09-3.23 = 731-0) MONO x10^3 (test code 0.26 10*3/uL 0.36-1.02 L = 742-7) EOS x10^3 (test code = 0.42 10*3/uL 0.06-0.53 711-2) BASO x10^3 (test code 0.11 10*3/uL 0.01-0.09 H = 704-7) Lab Interpretation Abnormal (test code = 91672-9) [facility]"
[2022-12-01 16:45] LABS: Absolute Lymphocytes (CBC) 2.1 K/uL (0.7-4.9); Lymphocytes % 12.9 % (15.3-44.8); MPV 7.4 fL (7.6-11.3); RBC Red Blood Cell Count 5.29 M/uL (4.33-5.43)
[2022-12-01 17:02] LABS: Albumin 3.9 g/dL (3.4-5.0); Bilirubin Total 1.1 mg/dL (0.2-1.0); Potassium 3.9 mEq/L (3.5-5.1)
[2022-12-01 17:34] LABS: Specific Gravity 1.025 (1.005-1.030); Urine Bacteria None Seen /HPF (<20); Urine Bilirubin NEGATIVE (Negative); Urine Blood Negative (Negative); Urine Clarity Clear (Clear); Urine Color Yellow (Yellow); Urine Glucose NEGATIVE (Negative); Urine Protein 2+ (Negative); Urine RBC None Seen /HPF (None Seen); Urine Urobilinogen 1+ (Normal); Urine pH 7.5 (5.0-7.0)
--- NOTE | 2022-12-01 18:55 | RAD REPORT ---
EXAM DESCRIPTION: CT - Abdomen Pelvis W Contrast - 12/01/2022 6:25 pm CLINICAL HISTORY: Abdominal pain/right lower quadrant COMPARISON: none. TECHNIQUE: Computed axial tomography of the abdomen pelvis was obtained. 100 cc Isovue-300 was admin istered intravenously. Oral contrast was not requested which limits evaluation of bowel and appendix All CT scans are performed using dose optimization technique as appropriate and may include automated exposure control or mA/KV adjustment according to patient size. FINDINGS: The liver, spleen, pancreas, adrenal and kidneys appear unremarkable. The proximal and mid appendix are normal. The distal appendix is borderline enlarged. Cecal diverticulum. Mild to moderate stranding adjacent to the cecum and proximal ascending colon Small right inguinal hernia contains fat IMPRESSION: The patient most likely has cecal diverticulitis. A distal tip appendicitis is considered less likely given that the majority of the stranding lies mario r the cecal diverticula. Close follow-up is recommended
--- NOTE | 2022-12-01 20:23 | ER ---
Nurse's Notes [facility] Name: Kwadwo Taveras Age: 32 yrs Sex: Male : 1990 Arrival Date: 12/01/2022 Time: 16:01 Bed 20 Private MD: Diagnosis: Cecal diverticulitis;Lower abdominal pain, unspecified Presentation: 12/01 16:10 Coronavirus screen: At this time, the client does not indicate any symptoms associated ld1 with coronavirus-19. Ebola Screen: No symptoms or risks identified at this time. Initial Sepsis Screen: Does the patient meet any 2 criteria? No. Patient's initial sepsis screen is negative. Does the patient have a suspected source of infection? No. Patient's initial sepsis screen is negative. Risk Assessment: Do you want to hurt yourself or someone else? Patient reports no desire to harm self or others. Onset of symptoms was December 01, 2022 at 16:12. 16:10 Method Of Arrival: Ambulatory ld1 16:25 Chief complaint: Patient states: LRQ pain since this morning. ld1 16:25 Acuity: DORCAS 3 ld1 Triage Assessment: 16:26 General: Appears in no apparent distress. comfortable, Behavior is calm, cooperative, ld1 appropriate for age. Pain: Complains of pain in right lower quadrant Pain does not radiate. Pain currently is 2 out of 10 on a pain scale. Quality of pain is described as throbbing. EENT: No signs and/or symptoms were reported regarding the EENT system. Neuro: Level of Consciousness is awake, alert, obeys commands, Oriented to person, place, time, situation. Cardiovascular: Capillary refill < 3 seconds Patient's skin is warm and dry. Respiratory: Airway is patent Respiratory effort is even, unlabored. GI: Abdomen is round non-distended, Reports lower abdominal pain. : No signs and/or symptoms were reported regarding the genitourinary system. Derm: No signs and/or symptoms reported regarding the dermatologic system. Musculoskeletal: No signs and/or symptoms reported regarding the musculoskeletal system. Historical: - Allergies: 16:26 No Known Allergies; ld1 - Home Meds: 16:26 None [Active]; ld1 - PMHx: 16:26 None; ld1 - PSHx: 16:26 None; ld1 - Immunization history:: Adult Immunizations up to date, Client reports receiving the 2nd dose of the Covid vaccine. - Social history:: Smoking status: Patient denies any tobacco usage or history of. Patient/guardian denies using alcohol. Screenin:21 [facility] ED Fall Risk Assessment (Adult) History of falling in the last 3 months, pf1 including since admission No falls in past 3 months (0 pts) Confusion or Disorientation No (0 pts) Intoxicated or Sedated No (0 pts) Impaired Gait No (0 pts) Mobility Assist Device Used No (0 pt) Altered Elimination No (0 pt) Score/Fall Risk Level 0 - 2 = Low Risk Oriented to surroundings, Maintained a safe environment, Educated pt \T\ family on fall prevention, incl call for assistance when getting out of bed, Assessed \T\ reinforced patient's understanding of fall precautions, Provided non-skid footwear, Hourly rounding (assess needs \T\ fall precautionary measures) done, Used ambulatory aids as needed (educated on \T\ assisted with), Used gait belt as appropriate. Abuse screen: Denies threats or abuse. Nutritional screening: No deficits noted. Tuberculosis screening: No symptoms or risk factors identified. Assessment: 19:20 General: Appears in no apparent distress. comfortable, well groomed, well developed, pf1 Behavior is calm, cooperative, appropriate for age, quiet. Pain: Complains of pain in right lower quadrant Pain currently is 2 out of 10 on a pain scale. Neuro: No deficits noted. Level of Consciousness is awake, alert, obeys commands, Oriented to person, place, time, situation. Cardiovascular: No deficits noted. Capillary refill < 3 seconds Patient's skin is warm and dry. Respiratory: No deficits noted. Airway is patent Trachea midline Respiratory effort is even, unlabored, Respiratory pattern is regular, symmetrical. GI: Abdomen is flat, non-distended, Bowel sounds present X 4 quads. Abd is soft Abdomen is tender to palpation in right lower quadrant. : No deficits noted. No signs and/or symptoms were reported regarding the genitourinary system. EENT: No deficits noted. No signs and/or symptoms were reported regarding the EENT system. Derm: No deficits noted. No signs and/or symptoms reported regarding the dermatologic system. Musculoskeletal: No deficits noted. No signs and/or symptoms reported regarding the musculoskeletal system. Vital Signs: 16:25 Pulse 94; Resp 18; Temp 97.9(O); Pulse Ox 98% on R/A; Weight 88.45 kg; Height 5 ft. 8 ld1 in. ; Pain 2/10; 16:29 Weight 95.25 kg; Height 5 ft. 8 in. ; ld1 20:01 BP 144 / 99; Pulse 95; Resp 16; Temp 99.7; Pulse Ox 100% on R/A; Pain 2/10; pf1 12/02 03:47 BP 117 / 73; Pulse 70; Resp 18; Pulse Ox 99% on R/A; kd3 12/01 16:29 Body Mass Index 31.93 (95.25 kg, 172.72 cm) ld1 06 16:25 Pain Scale: Adult ld1 20:01 Pain Scale: Adult pf1 ED Course: 12/01 16:03 Patient arrived in ED. ts1 16:04 Edd Barnes PA is PHCP. jmm 16:04 Donnell Ramirez DO is Attending Physician. jm 16:12 Triage completed. ld1 16:12 Arm band placed on right wrist. ld1 16:29 Inserted saline lock: 20 gauge in right antecubital area, using aseptic technique. ld1 Blood collected. 18:27 CT Abd/Pelvis - IV Contrast Only In Process Unspecified. EDMS 19:09 Eloina Sandhu, RN is Primary Nurse. ko1 20:22 William Crenshaw MD is Hospitalizing Provider. ms3 20:27 Ben Wilson MD is Hospitalizing Provider. la1 20:30 Inserted saline lock: 22 gauge in left hand, using aseptic technique. Blood collected. oe 20:39 Blood Culture Adult (2) Sent. pf1 20:39 Ptt, Activated Sent. pf1 20:39 PT-INR Sent. pf1 20:57 Primary Nurse role handed off by Eloina Sandhu, PRINCE rv1 22:11 Viviane Gibson, PRINCE is Primary Nurse. kd3 12/02 03:46 No provider procedures requiring assistance completed. Patient admitted, IV remains in kd3 place. 03:47 Patient has correct armband on for positive identification. kd3 08:53 Primary Nurse role handed off by Viviane Gibson, PRINCE eb Administered Medications: 12/01 20:55 Drug: Piperacillin-Tazobactam IVPB 3.375 grams Route: IVPB; Infused Over: 60 mins; pf1 Site: right antecubital; 12/02 03:48 Follow up: IV Status: Completed infusion kd3 12/01 21:41 Drug: Acetaminophen PO 1000 mg Route: PO; ha1 12/02 03:48 Follow up: Response: No adverse reaction; Pain is decreased kd3 Medication: 03:47 VIS not applicable for this client. kd3 Outcome: 12/01 20:22 Decision to Hospitalize by Provider. ms3 12/02 03:47 Admitted to ER Hold. Please see [facility] for further documentation. kd3 Condition: stable Discharge instructions given to patient, Instructed on discharge instructions, follow up and referral plans. 13:03 Patient left the ED. aa5 Signatures: Dispatcher [employer] EDMS Edd Barnes PA PA jmm Calderon, Audri, PRINCE RN aa5 Christian Infante, ICER MACHINE-C ICER MACHINE-Cla1 Domingo Bashir Elizabeth eb Sims, Marcus, DO DO ms3 Kallie Ramirez RN RN ld1 Viviane Gibson RN RN kd3 France Perez RN RN ha1 Eloina Sandhu RN RN Karly Millan RN RN pf1 Samra Pina rv1 Shanice Rosa, JIMENEZ PAS ts1 Corrections: (The following items were deleted from the chart) 12/01 16:15 16:10 Chief complaint: Patient states: Vomiting X 2 days. ld1 ld1 16:15 16:10 BP 151 / 98; Pulse 135bpm; Resp 20bpm; Pulse Ox 96% RA; Temp 98.1F Oral; 67.59 ld1 kg; Height 5 ft. 3 in.; BMI: 26.3; Pain 8/10, Adult; ld1 16:15 16:10 Acuity: DORCAS 3 ld1 ld1 16: 16:12 Allergies: No Known Allergies; ld1 ld1 16: 16:12 PMHx: Hypertensive disorder; ld1 ld1 16: 16:12 General: Appears in no apparent distress. comfortable, Behavior is calm, ld1 cooperative, appropriate for age, ld1 16: 16:12 Pain: Complains of pain in abdomen Pain does not radiate. Pain currently is 7 out ld1 of 10 on a pain scale. Quality of pain is described as throbbing, ld1 16:15 16:12 EENT: No signs and/or symptoms were reported regarding the EENT system. ld1 ld1 16:15 16:12 Neuro: Level of Consciousness is awake, alert, obeys commands, Oriented to ld1 person, place, time, situation, ld1 16:15 16:12 Cardiovascular: Capillary refill < 3 seconds Patient's skin is warm and dry. ld1 ld1 16:15 16:12 Respiratory: Airway is patent Respiratory effort is even, labored, Breath sounds ld1 with wheezes bilaterally. ld1 16:15 16:12 GI: Abdomen is round non-distended, ld1 ld1 16:15 16:12 : No signs and/or symptoms were reported regarding the genitourinary system. ld1ld1 16:15 16:12 Derm: No signs and/or symptoms reported regarding the dermatologic system. ld1 ld1 16:15 16:12 Musculoskeletal: No signs and/or symptoms reported regarding the musculoskeletal ld1 system. ld1 20:46 20:39 CBC+H.LAB.BRZ drawn and sent. pf1 EDMS 20:46 20:39 COMPREHENSIVE METABOLIC PANEL+C.LAB.BRZ drawn and sent. pf1 EDMS
--- NOTE | 2022-12-01 20:23 | EDPHYS ---
Physician Documentation [facility] Name: Kwadwo Taveras Age: 32 yrs Sex: Male : 1990 Arrival Date: 12/01/2022 Time: 16:01 Bed 20 Private MD: ED Physician Donnell Ramirez HPI: 12/01 16:28 This 32 yrs old Male presents to ER via Ambulatory with complaints of jmm Abdominal Pain. 16:28 The patient presents with abdominal pain right lower quadrant. Onset: The jmm symptoms/episode began/occurred gradually, this morning. The symptoms do not radiate. Associated signs and symptoms: Pertinent negatives: nausea and vomiting, diarrhea. The symptoms are described as achy. Modifying factors: The symptoms are alleviated by nothing, the symptoms are aggravated by nothing. The patient has experienced a previous episode. This is a 32 year old mal with no chronic medical conditions that presents to the ED with complaints of right lower abdominal pain beginning this morning worsening throughout the day. Denies fever. States his appetite is normal. Patient states having a similar episode previously and was diagnosed with appenditis. Patient states he spent the night and was told the surgery was not needed the next morning. . Historical: - Allergies: 16:26 No Known Allergies; ld1 - Home Meds: 16:26 None [Active]; ld1 - PMHx: 16:26 None; ld1 - PSHx: 16:26 None; ld1 - Immunization history:: Adult Immunizations up to date, Client reports receiving the 2nd dose of the Covid vaccine. - Social history:: Smoking status: Patient denies any tobacco usage or history of. Patient/guardian denies using alcohol. ROS: 16:28 Constitutional: Negative for fever, chills, and weight loss, Cardiovascular: Negative jmm for chest pain, palpitations, and edema, Respiratory: Negative for shortness of breath, cough, wheezing, and pleuritic chest pain. 16:28 Abdomen/GI: Positive for abdominal pain. 16:28 All other systems are negative. Exam: 16:28 Constitutional: This is a well developed, well nourished patient who is awake, alert, jmm and in no acute distress. Head/Face: atraumatic. Eyes: EOMI, no conjunctival erythema appreciated ENT: Moist Mucus Membranes Neck: Trachea midline, Supple Chest/axilla: Normal chest wall appearance and motion. Cardiovascular: Regular rate and rhythm. No edema appreciated Respiratory: Normal respirations, no respiratory distress appreciated 16:28 Back: Normal ROM Skin: General appearance color normal MS/ Extremity: Moves all extremities, no obvious deformities appreciated, no edema noted to the lower extremities Neuro: Awake and alert Psych: Behavior is normal, Mood is normal, Patient is cooperative and pleasant 16:28 Abdomen/GI: Inspection: abdomen appears normal, Bowel sounds: normal, Palpation: soft, moderate abdominal tenderness, in the right lower quadrant. Vital Signs: 16:25 Pulse 94; Resp 18; Temp 97.9(O); Pulse Ox 98% on R/A; Weight 88.45 kg; Height 5 ft. 8 ld1 in. ; Pain 2/10; 16:29 Weight 95.25 kg; Height 5 ft. 8 in. ; ld1 20:01 BP 144 / 99; Pulse 95; Resp 16; Temp 99.7; Pulse Ox 100% on R/A; Pain 2/10; pf1 06 03:47 BP 117 / 73; Pulse 70; Resp 18; Pulse Ox 99% on R/A; kd3 12/01 16:29 Body Mass Index 31.93 (95.25 kg, 172.72 cm) ld1 12/01 16:25 Pain Scale: Adult ld1 20:01 Pain Scale: Adult pf1 MDM: 12/01 16:28 Patient medically screened. bronwyn 17:51 Differential diagnosis: appendicitis, diverticulitis, Prostatitis, Pyelonephritis, lesly Testicular Torsion, Ureterolithiasis, urinary tract infection. 18:25 Data reviewed: vital signs, nurses notes. leslym 20:27 ED course: Discussed case with Christian Infante, on behalf of Dr Crenshaw, and he accepts ms3 patient. Discussed observation with patient and he understands/ agrees with plan.. 12/01 16:28 Order name: Urinalysis w/ reflexes; Complete Time: 17:41 ld1 12/01 16:44 Order name: Comprehensive Metabolic Panel; Complete Time: 17:06 EDMS 12/01 16:44 Order name: Lipase; Complete Time: 17:06 EDMS 12/01 16:44 Order name: CBC with Automated Diff; Complete Time: 16:57 EDMS 12/01 19:01 Order name: Lactate w/ 2H reflex if indic.; Complete Time: 20:24 [facility] 12/01 19:01 Order name: PT-INR; Complete Time: 21:07 [facility] 12/01 19:01 Order name: Blood Culture Adult (2) [facility] 12/01 19:01 Order name: Ptt, Activated; Complete Time: 21:07 [facility] 12/01 20:10 Order name: Glucose, Ancillary Testing; Complete Time: 20:13 [facility] 12/02 01:55 Order name: CBC with Automated Diff; Complete Time: 05:23 [facility] 12/02 02:45 Order name: Basic Metabolic Panel; Complete Time: 05:23 [facility] 12/01 16:31 Order name: CT Abd/Pelvis - IV Contrast Only; Complete Time: 18:57 [facility] 12/01 19:01 Order name: EKG; Complete Time: 19:01 [facility] 12/01 16:28 Order name: IV Saline Lock; Complete Time: 16:29 [facility] 12/01 16:28 Order name: Labs collected and sent; Complete Time: 16:29 [facility] 12/01 19:01 Order name: Accucheck; Complete Time: 20:00 [facility] 12/01 19:01 Order name: Cardiac monitoring; Complete Time: 19:40 [facility] 12/01 19:01 Order name: EKG - Nurse/Tech; Complete Time: 19:40 [facility] 12/01 19:01 Order name: IV Saline Lock - Large Bore; Complete Time: 19:02 [facility] 12/01 19:01 Order name: O2 Per Protocol; Complete Time: 19:02 [facility] 12/01 19:01 Order name: O2 Sat Monitoring; Complete Time: 19:02 [facility] 12/01 19:01 Order name: Vital Signs; Complete Time: 20:01 [facility] Administered Medications: 20:55 Drug: Piperacillin-Tazobactam IVPB 3.375 grams Route: IVPB; Infused Over: 60 mins; pf1 Site: right antecubital; 12/02 03:48 Follow up: IV Status: Completed infusion kd3 12/01 21:41 Drug: Acetaminophen PO 1000 mg Route: PO; ha1 12/02 03:48 Follow up: Response: No adverse reaction; Pain is decreased kd3 Disposition: 12/01 20:27 Co-signature as Attending Physician, Donnell Ramirez DO. ms3 Disposition Summary: 12/01/22 20:22 Hospitalization Ordered Condition: Stable ms3 Problem: new ms3 Symptoms: are unchanged ms3 Bed/Room Type: Standard ms3 Hospitalization Status: Inpatient Admission(12/01/22 20:27) la1 Provider: Ben Wilson(12/01/22 20:27) colette Location: [facility] ER HOLD(12/01/22 20:56) cg Room Assignment: ERHOLD-(12/01/22 20:56) cg Diagnosis - Cecal diverticulitis ms3 - Lower abdominal pain, unspecified ms3 Discharge Instructions: - Discharge Summary Sheet eb Forms: - Medication Reconciliation Form ms3 - SBAR form ms3 Signatures: Dispatcher [employer] EDMS Edd Barnes PA PA Christian Nagy, DELROY-C DOG CATCHER-Cla1 Rajni Madrid RN RN cg Donnell Ramirez DO DO ms3 Kallie Ramirez RN RN ld1 France Perez RN RN ha1 Finley, Pamala, RN RN pf1 Viviane Gibson RN kd3 Corrections: (The following items were deleted from the chart) 16:15 16:12 Allergies: No Known Allergies; ld1 ld1 16:15 16:12 PMHx: Hypertensive disorder; ld1 ld1 17:23 16:43 Abdomen ordered. EDMS EDMS 18:46 16:55 CBC+H.LAB.BRZ ordered. EDMS EDMS 18:46 16:55 COMPREHENSIVE METABOLIC PANEL+C.LAB.BRZ ordered. EDMS EDMS 18:46 16:55 LIPASE+C.LAB.BRZ ordered. EDMS EDMS 20:27 20:22 Observation ms3 la1 20:27 20:22 William Crenshaw ms3 la1 20:46 19:01 CBC+H.LAB.BRZ ordered. EDMS EDMS 20:46 19:01 COMPREHENSIVE METABOLIC PANEL+C.LAB.BRZ ordered. EDMS EDMS 20:56 20:22 Telemetry/MedSurg (observation) ms3 cg 20:56 20:22 ms3 cg
[2022-12-01] MEDS ORDERED: PIPERACIL/TAZO 3.375 GM VIAL IV ONE (20:49)
[2022-12-01] MEDS ORDERED: NA CHLORIDE 0.9% 100 ML ONE (20:50)
--- NOTE | 2022-12-01 21:03 | P.HP ---
Certification for Inpatient Patient admitted to: Inpatient With expected LOS: >2 Midnights Patient will require the following post-hospital care: None Practitioner: I am a practitioner with admitting privileges, knowledge of patient current condition, hospital course, and medical plan of care. Services: Services provided to patient in accordance with Admission requirements found in Title 42 Section 412.3 of the Code of Federal Regulations Patient History Date of Service: 12/01/22 Reason for admission: Cecal Diverticulitis History of Present Illness: 32-year-old otherwise healthy male presents emergency department with 1 day of right lower quadrant abdominal pain. He was evaluated in the emergency department found to have leukocytosis with blood cell count 16.2, tachycardia with a heart rate greater than [address] showed "the patient most likely has cecal diverticulitis. A distal tip appendicitis is considered less likely given that the majority of the stranding lies near the cecal diverticula. Close follow-up is recommended." Patient with right mid abdominal tenderness more than the right lower quadrant tenderness, meets criteria for sepsis without severe sepsis or septic shock at this time given antibiotics in ED, blood cultures were obtained. Will admit for suspected cecal diverticulitis with surgical consult. 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 - Family History Family History: Reviewed- Non-Contributory - Social History Smoking Status: Never smoker Alcohol use: No CD- Drugs: No Caffeine use: Yes Place of Residence: Home Review of Systems 10-point ROS is otherwise unremarkable Gastrointestinal: Abdominal Pain Physical Examination - Physical Exam General: Alert, In no apparent distress, Oriented x3 HEENT: Atraumatic, PERRLA, Mucous membr. moist/pink, EOMI, Sclerae nonicteric Neck: Supple, 2+ carotid pulse no bruit, No LAD, Without JVD or thyroid abnormality Respiratory: Clear to auscultation bilaterally, Normal air movement Cardiovascular: No edema, Regular rate/rhythm, Normal S1 S2 Capillary refill: <2 Seconds Gastrointestinal: Normal bowel sounds, Tenderness (Mild right sided tenderness, more mid than lower.) Musculoskeletal: No tenderness Integumentary: No rashes Neurological: Normal speech, Normal strength at 5/5 x4 extr, Normal tone, Normal affect - Studies Laboratory Data (last 24 hrs) 12/01/22 20:26: PT 11.0, INR 1.00, APTT 29.5 12/01/22 19:01: Sodium Cancelled, Potassium Cancelled, BUN Cancelled, Creatinine Cancelled, Glucose Cancelled, Total Bilirubin Cancelled, AST Cancelled, ALT Cancelled, Alkaline Phosphatase Cancelled 12/01/22 19:01: WBC Cancelled, Hgb Cancelled, Hct Cancelled, Plt Count Cancelled 12/01/22 16:35: Sodium 137, Potassium 3.9, BUN 10, Creatinine 0.87, Glucose 107 H, Total Bilirubin 1.1 H, AST 17, ALT 49, Alkaline Phosphatase 65, Lipase 24 12/01/22 16:35: WBC 16.20 H, Hgb 15.5, Hct 46.0, Plt Count 304 12/01/22 16:28: Sodium Cancelled, Potassium Cancelled, BUN Cancelled, Creatinine Cancelled, Glucose Cancelled, Total Bilirubin Cancelled, AST Cancelled, ALT Cancelled, Alkaline Phosphatase Cancelled, Lipase Cancelled 12/01/22 16:28: WBC Cancelled, Hgb Cancelled, Hct Cancelled, Plt Count Cancelled Assessment and Plan - Plan Assessment: Sepsis without severe sepsis or septic shock secondary to cecal diverticulitis versus early appendicitis Plan: Sepsis without severe sepsis or septic shock secondary to cecal diverticulitis versus early appendicitis Will admit for IV antibiotics, surgical consult. Serial abdominal exams currently with mild right-sided abdominal tenderness more midabdominal than lower abdominal. He reports a similar episode about 3 years ago where he was told he may need to have his appendix but ended not needing surgery at that time. He has never had colonoscopy or other GI workup. DVT PPX: Ambulation 4 times daily Code status: Full Discharge Plan: Home Plan to discharge in: 48 Hours - Advance Directives Does patient have a Living Will: No Does patient have a Durable POA for Healthcare: No - Code Status/Comfort Care Code Status Assessed: Yes (Full code) Critical Care: No Time Spent Managing Pts Care (In Minutes): 55
[2022-12-01] MEDS: NA CHLORIDE 0.9% 1,000 ML IV SCH (21:25)
[2022-12-01] MEDS ORDERED: ONDANSETRON 4 MG/2 ML VIAL IV PRN (21:25)
[2022-12-01] MEDS ORDERED: MORPHINE 2 MG/ML SYR IV PRN (21:25)
[2022-12-01] MEDS ORDERED: ACETAMINOPHEN 500 MG TAB ONE (21:36)
[2022-12-01] MEDS ORDERED: NA CHLORIDE 0.9% 1,000 ML ONE (22:16)
[2022-12-01 22:24] VITALS: BMI 29.6
[2022-12-02] MEDS: METRONIDAZOLE 500mg IVPB 500 MG/100 ML BAG IV SCH ×2 (00:34→08:35)
[2022-12-02] MEDS ORDERED: METRONIDAZOLE 500mg IVPB 500 MG/100 ML BAG IV ONE ×2 (00:38→08:28)
[2022-12-02 01:50] LABS: Absolute Lymphocytes (CBC) 3.1 K/uL (0.7-4.9); Hematocrit 42.3 % (39.6-49.0); MCV 87.5 fL (80-100); MPV 7.3 fL (7.6-11.3); RBC Red Blood Cell Count 4.84 M/uL (4.33-5.43)
[2022-12-02 02:02] LABS: Potassium 3.8 mEq/L (3.5-5.1)
--- NOTE | 2022-12-02 07:19 | P.PN ---
Date of Service: 12/02/22 Subjective: ROS: 10 point ROS as noted above, otherwise negative Physical Exam: GEN: Alert, oriented, NAD HEENT: Normal conjunctiva, sclera anicteric CV: Regular rate and rhythm, no edema Pulm: Nonlabored respirations on room air ABD: Soft, Mild right midabdominal tenderness MSK: No joint tenderness Integumentary: No rashes Neuro: Normal speech, normal affect vitals reviewed Problem List: Sepsis without shock secondary to cecal diverticulitis vs. early appendicitis He reports a similar episode about 3 years ago where he was told he may need to have his appendix but ended not needing surgery at that time. He has never had colonoscopy or other GI workup. CT abdomen: Blood cultures: pending cipro/flagyl(12/02-) General surgery consulted IVF while NPO pain medication VTE: ambulatory Code: Full Dispo: Home 48 hrs
[2022-12-02] MEDS ORDERED: CIPROFLOXACIN 400mg IV 400 MG/200 ML BAG IV ONE (08:28)
[2022-12-02] MEDS ORDERED: NA CHLORIDE 0.9% 1,000 ML ONE (08:30)
[2022-12-02] MEDS: NA CHLORIDE 0.9% 1,000 ML IV SCH (08:35)
[2022-12-02] MEDS ORDERED: CIPROFLOXACIN 400mg IV 400 MG/200 ML BAG IV SCH (09:00)
--- NOTE | 2022-12-02 12:31 | P.DS ---
Admission Date: 12/01/22 Discharge Date: 12/02/22 Disposition: ROUTINE DISCHARGE Discharge Condition: GOOD Reason for Admission: Cecal Diverticulitis Consultations: General Surgery - Dr. Gross Brief History of Present Illness: 32yo M, PMH: none Patient presents emergency department with 1 day of right lower quadrant abdominal pain. He was evaluated in the emergency department found to have leukocytosis with blood cell count 16.2, tachycardia with a heart rate greater than [address] showed "the patient most likely has cecal diverticulitis. A distal tip appendicitis is considered less likely given that the majority of the stranding lies near the cecal diverticula. Close follow-up is recommended." Patient with right mid abdominal tenderness more than the right lower quadrant tenderness, meets criteria for sepsis without severe sepsis or septic shock at this time given antibiotics in ED, blood cultures were obtained. Will admit for suspected cecal diverticulitis with surgical consult. Hospital Course: Problem List: Sepsis without shock secondary to cecal diverticulitis vs. early appendicitis Patient presented with right lower quadrant abdominal pain. CT abdomen/pelvis "most likely has cecal diverticulitis" vs possible appendicitis. General Surgery was consulted. He was treated with IV ciprofloxacin/flagyl, IVF, and pain medication and had significant improvement of his symptoms. Dr. Gross assessed the patient and recommended discharge home on antibiotics, no surgical intervention warranted/indicated at this time. Follow up with Dr. Gross in ~1 week. Continue with a bland, low fat/low fiber diet. New Prescriptions: Cipro 500 mg twice a day for 10 days Flagyl 500 mg every 8 hours for 10 days Follow up: PCP 3-[address] Gross within 1 week Can discuss with PCP or DR. Gross in regard to timing of colonoscopy Physical Exam: GEN: Alert, oriented, NAD HEENT: Normal conjunctiva, sclera anicteric CV: Regular rate and rhythm, no edema Pulm: Nonlabored respirations on room air ABD: Soft, minimal RLQ abd tenderness on deep palpation MSK: No joint tenderness Integumentary: No rashes Neuro: Normal speech, normal affect Vital Signs/Physical Exam: Temp Pulse Resp BP Pulse Ox 98.2 F 73 19 111/77 98 12/02/22 04:00 12/02/22 04:00 12/02/22 04:00 12/02/22 04:00 12/02/22 04:00 Laboratory Data at Discharge: WBC 13.60 thou/uL (4.3-10.9) H 12/02/22 01:30 Hgb 14.4 g/dL (13.6-17.9) 12/02/22 01:30 Hct 42.3 % (39.6-49.0) 12/02/22 01:30 Plt Count 297 thou/uL (152-406) 12/02/22 01:30 PT 11.0 SECONDS (9.5-12.5) 12/01/22 20:26 INR 1.00 12/01/22 20:26 APTT 29.5 SECONDS (24.3-36.9) 12/01/22 20:26 Sodium 138 mEq/L (136-145) 12/02/22 01:30 Potassium 3.8 mEq/L (3.5-5.1) 12/02/22 01:30 BUN 10 mg/dL (7-18) 12/02/22 01:30 Creatinine 0.89 mg/dL (0.70-1.30) 12/02/22 01:30 Glucose 100 mg/dL (74-106) 12/02/22 01:30 Total Bilirubin Cancelled 12/01/22 19:01 AST Cancelled 12/01/22 19:01 ALT Cancelled 12/01/22 19:01 Alkaline Phosphatase Cancelled 12/01/22 19:01 Lipase 24 U/L (13-75) 12/01/22 16:35 Home Medications: Ciprofloxacin HCl [Cipro 500 MG Tablet] 500 mg PO BID 10 Days #20 tab 12/02/22 metroNIDAZOLE [Flagyl] 500 mg PO Q8H 10 Days #30 tab 12/02/22 New Medications: Ciprofloxacin HCl [Cipro 500 MG Tablet] 500 mg PO BID 10 Days #20 tab metroNIDAZOLE [Flagyl] 500 mg PO Q8H 10 Days #30 tab Physician Discharge Instructions: Patient presented with right lower quadrant abdominal pain. CT abdomen/pelvis " most likely has cecal diverticulitis" vs possible appendicitis. General Surgery was consulted. He was treated with IV ciprofloxacin/flagyl, IVF, and pain medication and had significant improvement of his symptoms. Dr. Gross assessed the patient and recommended discharge home on antibiotics, no surgical intervention warranted/indicated at this time. Follow up with Dr. Gross in ~1 week. Continue with a bland, low fat/low fiber diet. New Prescriptions: Cipro 500 mg twice a day for 10 days Flagyl 500 mg every 8 hours for 10 days Follow up: PCP 3-[address] Gross within 1 week Can discuss with PCP or DR. Gross for further assessment if an outpatient colonoscopy is needed Followup: [facility],[place] [AFFILIATE - CAN NOT ADMIT] - Unknown,U [Primary Care Provider] - Time spent managing pt's care (in minutes): 45
[2022-12-02 14:08] VITALS: TEMP 99.7
[2022-12-02 14:09] VITALS: BP 117/73; O2SAT 99
--- NOTE | 2022-12-04 12:09 | EKG ---
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
== END 2022-12-02 13:06 | disposition home or self-care (01) | DRG 872 ==
LOC: ER 16:01 → ERHOLD 20:45
PROVIDERS: ADMIT Hospitalist; ATTEND Hospitalist
DX: A41.9 Sepsis, unspecified organism (principal); K57.32 Diverticulitis of large intestine without perforation or abscess without bleeding; K35.80 Unspecified acute appendicitis
CPT/HCPCS: 36415; 74177; 80048; 80053; 81001; 82947; 83605; 83690; 85025; 85610; 85730; 87040; 93005; 96365; 96366; 99285; J0744; J2543; J7030; Q9967